=== PATIENT | male | born 1945 | race Caucasian/White ===

== ENCOUNTER 2018-05-13 05:57 | Day surgery (SDC) | payer BC, MEDICARE ==
[2018-04-21 08:51] VITALS: BMI 25.8
[2018-05-13 07:05] VITALS: O2SAT 100
[2018-05-13] MEDS ORDERED: Bupivacaine 0.25% 20 ML INJ IJ ONE ×2 (07:16→07:24)
[2018-05-13] MEDS ORDERED: Lidocaine Hydrochloride 0 ML INJ ONE (07:16)
[2018-05-13] MEDS ORDERED: EPINEPHrine 1 mg/ml (1:1000) Inj ONE (07:20)
[2018-05-13] MEDS ORDERED: ceFAZolin IV 2 gm in Dextrose 0 GM/0 ML BAG IVPB ONE (07:21)
[2018-05-13] MEDS ORDERED: Lidocaine 2% MPF (5 ml) Inj ONE ×3 (07:23→07:29)
[2018-05-13] MEDS ORDERED: ceFAZolin 1 gm in NS 2 GM/200 ML BAG IVPB ONE (07:23)
[2018-05-13] MEDS ORDERED: MethylPREDNISolone Depo 40 mg/ml Inj ONE (07:23)
[2018-05-13] MEDS ORDERED: Iohexol 240 (50 ml) ONE (07:24)
[2018-05-13] MEDS ORDERED: EPINEPHrine 1:1000 Nasal Sol(30mL) ONE (07:26)
[2018-05-13] MEDS ORDERED: Propofol 10 mg/ml Inj (20 ML) ONE ×3 (07:35→08:08)
[2018-05-13] MEDS ORDERED: methylPREDNISolone Depo 80 mg/ml Inj ONE (07:44)
[2018-05-13] MEDS ORDERED: Midazolam 2 MG/2 ML VIAL ONE (07:50)
[2018-05-13] MEDS ORDERED: Rocuronium 10 mg/ml (5 ml) ONE (07:54)
[2018-05-13] MEDS ORDERED: HYDROmorphone 0.5 mg/0.5 ml ISec IVP PRN (08:08)
[2018-05-13] MEDS ORDERED: Oxycodone/Acetaminophen 5/325 mg Tab PO PRN (08:39)
[2018-05-13 09:27] VITALS: BP 113/55; PULSE 68; RESP 18; TEMP 97.4
--- NOTE | 2018-05-13 14:24 | RAD ---
Date of service: 05/13/2018 PROCEDURE: Intraoperative Fluoroscopy. HISTORY: LT. HIP DDD FINDINGS: Fluoroscopic assistance was provided for left hip injection. Please refer to the operative report from FAMILIA Johnson DR, MD. Total fluoroscopic time (continuous mode) utilized during the procedure 15.5 (seconds). Total exam DLP: 1.11 (mGy)
--- NOTE | 2018-05-16 02:09 | OP ---
Copied To: Dee Dee Paiz MD Attending MD: Dee Dee Paiz MD PROCEDURE DATE: 05/13/2018 PREOPERATIVE DIAGNOSES: Left hip, 1. Synovitis. 2. Early degenerative joint disease. 3. Labral tear. 4. Greater trochanteric bursitis. 5. Abductor tendinopathy. POSTOPERATIVE DIAGNOSES: Left hip, 1. Synovitis. 2. Early degenerative joint disease. 3. Labral tear. 4. Greater trochanteric bursitis. 5. Abductor tendinopathy. PROCEDURES: Left hip, 1. Fluoroscopic-guided intraarticular cortisone mixture injection. 2. Fluoroscopic-guided cortisone mixture injection to the abductor tendon and greater trochanteric bursa. SURGEON: Dee Dee Paiz MD [employer] REPAIRER: None. TYPE OF ANESTHESIA: IV sedation with local anesthetic placed by surgeon. COMPLICATIONS: None. SPECIMEN: None. DRAINS: None. ESTIMATED BLOOD LOSS: 1 mL. INJECTION CONTENTS: For both injections, intraarticular and to the greater trochanteric bursa/abductor tendon: The injection consisted of 5 mL total with 2 mL of 0.5% lidocaine preservative free/2 mL of 0.5% Marcaine preservative free without epinephrine, 1 mL of 80 mg of Depo-Medrol preservative free. DISPOSITION: The patient was awakened from IV sedation and transferred to PACU in stable condition and tolerated the procedure well. INDICATIONS FOR THE PROCEDURE: The patient is a 72-year-old male with a past medical history significant for end-stage liver disease, status post transplant in 01/2018, hepatitis C positive, hypertension who presented to the office under my care for over two years. The patient is also status post T11-S1 posterior spinal fusion and decompression. The patient began to develop significant left hip and groin pain over the past three months. His spine surgeon referred him for an MRI of the left hip that showed possible degenerative labral tear and inflammatory changes as well as greater trochanteric bursitis and tendinopathy. It was difficult to ascertain if this is residual radiculopathy versus local left hip pain generator as a new problem. In having long conversation with the patient's spine surgeon, we decided to proceed with fluoroscopic-guided intraarticular cortisone mixture injection and greater trochanteric bursa/abductor tendon cortisone mixture injection to serve as both the diagnostic and possibly therapeutic utility for this patient determining which is his pain generator, left hip versus residual spine issues, as well as possible therapeutic benefits of treating his pain. He was referred to his liver specialist for preoperative medical evaluation and clearance was obtained. The procedure was scheduled at [facility] on 05/13/2018. PROCEDURE IN DETAIL: The patient was identified in the preoperative holding and the left hip was marked for surgery. Once again, the risks, benefits, and alternatives of the procedure were discussed at length with the patient with the risks included, but not limited to infection, neurovascular damage, developing blood clots including DVT and PE, allergic reaction, flare up of pain, synovitis, need for further surgery, anesthesia reactions including . After answering all of his questions, the patient stated that he understood the risks and wished to proceed with the procedure. After brief discussion with anesthesia staff, the patient was taken to the operating room and placed in a well-padded operating room table that was radiolucent. An initial time-out was done with the surgeon, anesthesia staff, OR staff, all in agreement with the patient, procedure being done, and extremity being operated on. Left hip was prepped and draped in the standard sterile fashion. IV sedation was administration without difficulty or complication. Both lower extremities were tied together at the foot, placing the hips in internal rotation to allow for easier access to the anterior capsule for the intraarticular injection. Final time-out was done with the surgeon, anesthesia staff, OR staff, all in agreement with the patient, procedure to be done, extremity to be operated on. Landmarks were palpated and the ASIS was marked as well as the superior tip of the greater trochanter, and the intersecting line between both points was drawn out. Care was taken to stay in the upper outer quadrant to avoid neurovascular damage with the spinal needle. Optimal entry point for the spinal needle for the intraarticular injection was identified and 2% lidocaine without epinephrine preservative free was infiltrated at the injection site, 10 mL in total to establish local anesthetic. Once the local anesthetic was established, the spinal needle was advanced through the skin down to the superior head and neck junction, confirmed on fluoroscopic imaging to be in an optimal position. A 2 mL of 2% lidocaine without epinephrine preservative free and radiopaque contrast were then inserted in a positive ring sign developed confirming an intraarticular position for the spinal needle. Excess contrast was aspirated and the injection mixture, and its entire contents of 5 mL was injected intraarticularly consisting of 1 mL of 40 mg of Depo-Medrol preservative free, 2 mL of 0.5% Marcaine without epinephrine preservative free, 2 mL of 2% lidocaine without epinephrine preservative free in its entirety. Once the injection was delivered intraarticularly, the spinal needle was removed and sterile dressing was placed on the spinal needle incision. Attention was then turned towards the greater trochanteric bursa injection/abductor tendon injection. The greater trochanter was palpated and fluoroscopic imaging was used to confirm optimal placement to support the spinal needle. Spinal needle was advanced until it was palpated to hit along the greater trochanter. A 5 mL mixture injection as above was injected in its entirety. The spinal needle was removed and sterile dressings were placed. The hip was then taken through range of motion and the patient was then awakened from IV sedation and transferred to PACU in stable condition and he tolerated the procedure well. EXAMINATION IN PACU: I personally examined the patient in PACU after he woke up from IV sedation, and he reported to me he had 0/10 pain localized to the groin or the greater trochanteric bursa/abductor tendon, and he was very happy with the outcome of the injection. DISPOSITION: The patient will be discharged home once he was recovered from IV sedation. He was given a prescription for Vicoprofen as pain control. He is instructed to ice the left hip groin and greater trochanteric bursa area as well as ambulate weightbearing as tolerated to the left lower extremity with no restrictions. He will contact my office with any questions or concerns or updates. He will follow up in the office in [facility] within two weeks and already has his postprocedure appointments set up. MD Angelica Bearden 05/15/2018 14:31:53
== END 2018-05-13 12:04 | disposition hospice, home (50) ==
LOC: C.SDS 05:57
PROVIDERS: ATTEND Student in an Organized Health Care Education/Training Program
DX: M70.62 Trochanteric bursitis, left hip (principal); M16.12 Unilateral primary osteoarthritis, left hip; M67.852 Other specified disorders of synovium, left hip; M24.152 Other articular cartilage disorders, left hip
CPT/HCPCS: 20610; 97116; 97161; G8978; G8979; G8980; J0690; J1040; J2001; J2250; J2405; J2704; J3010; Q9966

== ENCOUNTER 2018-07-18 21:54 | Day surgery (SDC) | payer BC, MEDICARE ==
[2018-04-21 08:51] VITALS: BMI 25.8
[2018-07-18] MEDS ORDERED: Sodium Chloride 0.9% 1,000 ML IV SCH (22:15)
[2018-07-18 22:29] LABS: BASO % 0.6 % (0.0-2.0); EOS % 0.8 % (0.0-4.0); HEMOGLOBIN 10.9 g/dL (12.0-18.0); LYMPH # 0.5 K/uL (1.0-4.3); LYMPH % 16.7 % (20.0-40.0); MEAN CELL VOLUME 90.4 fL (80.0-94.0); MEAN CORPUSCULAR HGB CONC 34.3 g/dL (33.0-37.0); MEAN PLATELET VOLUME 10.8 fL (7.2-11.7); MONO # 0.3 K/uL (0.0-0.8); MONO % 8.9 % (0.0-10.0); NEUT # 2.1 K/uL (1.8-7.0); RBC 3.51 Mil/uL (4.40-5.90); RED CELL DISTRIBUTION WIDTH 14.6 % (11.5-14.5); WHITE BLOOD COUNT 2.8 K/uL (4.8-10.8)
[2018-07-18 23:15] LABS: ALB/GLOB RATIO 1.4 (1.0-2.1); ALT/SGPT 23 U/L (21-72); AST/SGOT 20 U/L (17-59); BLOOD UREA NITROGEN 30 mg/dL (9-20); CALCIUM 8.9 mg/dl (8.6-10.4); GFR NON-AFRICAN AMERICAN 60
[2018-07-19 06:44] LABS: BASO % 0.6 % (0.0-2.0); EOS % 1.4 % (0.0-4.0); LYMPH # 0.4 K/uL (1.0-4.3); LYMPH % 20.7 % (20.0-40.0); MEAN CELL VOLUME 89.8 fL (80.0-94.0); MEAN CORPUSCULAR HEMOGLOBIN 31.3 pg (27.0-31.0); MEAN CORPUSCULAR HGB CONC 34.9 g/dL (33.0-37.0); MONO # 0.3 K/uL (0.0-0.8); MONO % 12.2 % (0.0-10.0); NEUT # 1.4 K/uL (1.8-7.0); NEUT % 65.1 % (50.0-75.0); RBC 3.2 Mil/uL (4.40-5.90); RED CELL DISTRIBUTION WIDTH 14.6 % (11.5-14.5); WHITE BLOOD COUNT 2.1 K/uL (4.8-10.8)
[2018-07-19 06:51] LABS: INR 1.3; PROTHROMBIN TIME 13.9 SECONDS (9.7-12.2)
[2018-07-19 07:00] LABS: ALB/GLOB RATIO 1.4 (1.0-2.1); ALBUMIN 3.7 g/dL (3.5-5.0); ALT/SGPT 32 U/L (21-72); AST/SGOT 20 U/L (17-59); BLOOD UREA NITROGEN 26 mg/dL (9-20); CALCIUM 8.8 mg/dl (8.6-10.4); GFR NON-AFRICAN AMERICAN > 60
[2018-07-19] MEDS ORDERED: MethylPREDNISolone Depo 40 mg/ml Inj ONE (07:14)
[2018-07-19] MEDS ORDERED: Bupivacaine HCl 0.25% PF (10 ml) Inj ONE (07:15)
[2018-07-19] MEDS ORDERED: Iohexol 240 (50 ml) ONE (07:15)
[2018-07-19 07:48] LABS: HEMOGLOBIN 10.3 g/dL (12.0-18.0); MEAN CELL VOLUME 90.2 fL (80.0-94.0); MEAN CORPUSCULAR HEMOGLOBIN 31.6 pg (27.0-31.0); MEAN PLATELET VOLUME 9.5 fL (7.2-11.7); RBC 3.26 Mil/uL (4.40-5.90); RED CELL DISTRIBUTION WIDTH 14.6 % (11.5-14.5); WHITE BLOOD COUNT 2.1 K/uL (4.8-10.8)
[2018-07-19] MEDS ORDERED: Lidocaine Hydrochloride 5 ML INJ ONE (08:07)
[2018-07-19] MEDS ORDERED: Triamcinolone Acetonide 40 mg/mL Inj ONE (08:08)
[2018-07-19] MEDS ORDERED: Propofol 10 mg/ml Inj (20 ML) ONE (08:22)
[2018-07-19] MEDS ORDERED: Midazolam 2 MG/2 ML VIAL ONE (08:22)
[2018-07-19] MEDS ORDERED: Sodium Chloride 0.9% 20 ML IV ONE (08:28)
[2018-07-19 11:44] VITALS: BP 118/78; PULSE 55; RESP 20; TEMP 97.4; O2SAT 98
--- NOTE | 2018-07-19 14:53 | RAD ---
Date of service: 07/19/2018 PROCEDURE: Intraoperative Fluoroscopy. HISTORY: LOWER BACK PAIN FINDINGS: Fluoroscopic assistance was provided for sacroiliac joint injection. Please refer to the operative report from GAMALIEL Escobar. Total fluoroscopic time (continuous mode) utilized during the procedure 13.7 (seconds). Dose report: DLP 0.166 (mGy/m2):
--- NOTE | 2018-07-19 16:56 | CP.PCM.PN ---
Subjective - Date & Time of Evaluation Date of Evaluation: 07/19/18 Time of Evaluation: 10:00 - Subjective Subjective: Alert, awake, no acute pain or distress. Objective - Vital Signs/Intake and Output Vital Signs (last 24 hours): Temp Pulse Resp BP Pulse Ox 97.4 F L 55 L 20 118/78 98 07/19/18 10:15 07/19/18 10:15 07/19/18 10:15 07/19/18 10:15 07/19/18 10:15 Intake and Output: 07/19/18 07/19/18 06:59 18:59 Intake Total 1038 275 Balance 1038 275 - Labs Labs: 07/19/18 07:42 07/19/18 06:34 PT 13.9 SECONDS (9.7-12.2) H 07/19/18 06:34 INR 1.3 07/19/18 06:34 APTT 37 SECONDS (21-34) H 07/19/18 06:34 Assessment and Plan - Assessment and Plan (Free Text) Assessment: 72 Year old male admitted after steroid epidural injection for lumbar spondylosis, seen and examined. Alert and oriented x3, denies acute pain. Was out of bed on the chair, no distress, tolerated diet, voided, vial signs stable. Discharged home on home meds as instructed by DR Romeo. Advised to follow up in the office in 1 week.
[2018-07-20] MEDS ORDERED: Home Med 1 UNIT (Atorvastatin [Lipitor] 10 MG) PO SCH ×3 (10:00)
--- NOTE | 2018-08-11 06:40 | OP ---
PROCEDURE DATE: 07/19/2018 PREOPERATIVE DIAGNOSES: 1. Lumbar radiculopathy. 2. Lumbar herniated disk. 3. Sacroiliitis. POSTOPERATIVE DIAGNOSES: 1. Lumbar radiculopathy. 2. Lumbar herniated disk. 3. Sacroiliitis. PROCEDURES: Caudal epidural steroid injection and left SI joint injection. X-RAY: Fluoroscopy of the spine. SURGEON: Darryl Alvarado MD. ANESTHESIA: MAC local sedation. ESTIMATED BLOOD LOSS: None. COMPLICATIONS: None. BRIEF HISTORY AND INDICATIONS: The patient with lumbar radiculopathy, failed back syndrome. The patient with radicular pain bilaterally to the feet. The patient is here for caudal epidural steroid injection under fluoroscopic guidance and SI joint injection on the left side. PROCEDURE IN DETAIL: The patient's chart reviewed. Informed consent was obtained. The patient was brought back to the procedure room, placed in prone position. Routine monitors were applied. The patient was prepped and draped in sterile fashion. Under fluoroscopic viewof the sacral hiatus and sacral lateral view, a #27 gauge needle was used to infiltrate the skin subcutaneously with lidocaine 1%, 2 mL. Subsequently, a #20 gauge Tuohy needle was used to advance into the caudal epidural space. Needle position was confirmed with AP and lateral views. Omnipaque 180 dye was injected showing good epidural rim. Subsequently, Depo-Medrol 80 mg with 5 mL of 0.5% Marcaine preservative-free with 10 mL of normal saline was injected with intermittent negative aspiration. No heme or CSF was aspirated throughout. No paresthesias were elicited throughout. The needle and catheter were removed. The patient tolerated the procedure well. Vital signs remained stable. The patient's sacroiliac joint was imaged under fluoroscopic guidance. A #27-gauge needle was used to inject lidocaine 1% subcutaneously over the inferior medial sacral joint line. Subsequently, a #22 gauge 3.5 inch spinal needle was advanced into the sacroiliac joint. Omnipaque dye 1 mL was injected, showing good intra-articular spread. Subsequently, Depo-Medrol 40 mg with 3 mL of 1% lidocaine was injected with negative intermittent aspiration. No heme was aspirated. No CSF was aspirated throughout. No paresthesias were elicited throughout. The patient tolerated the procedure well. Vital signs remained stable. DISPOSITION: The patient will be given instructions to follow up in 2 weeks and discharged from the postop area in stable condition. No events or complications. Darryl Alvarado MD
== END 2018-07-19 12:30 | disposition home or self-care (01) ==
LOC: UNDOADMOB 21:54 → C.6T 21:54 → C.SDS 21:54 → C.6T 23:16 → EDSTATUS 07-19 07:30 → UNDODISOB 07-19 12:30 → C.SDS 07-19 12:30
PROVIDERS: ATTEND Anesthesiology Pain Medicine
DX: M51.16 Intervertebral disc disorders with radiculopathy, lumbar region (principal); M46.1 Sacroiliitis, not elsewhere classified
CPT/HCPCS: 36415; 36430; 62323; 80053; 85025; 85027; 85610; 85730; 86850; 86900; 86920; J1030; J2250; J2704; J3010; J3301; J7030; P9053